=== PATIENT | male | born 1940 | race Caucasian/White ===

== ENCOUNTER 2019-06-17 09:45 | Emergency (ER) | payer OTHER, BC ==
[2019-06-17 10:06] VITALS: TEMP 97.4; BMI 28.7
--- NOTE | 2019-06-17 10:47 | PDOC ---
History of Present Illness - General Chief Complaint: Lightheaded Stated Complaint: FALL Time Seen by Provider: 06/17/19 10:03 History Source: Patient Exam Limitations: No Limitations - History of Present Illness Initial Comments: 06/17/19 10:57 Presents to ED with complaints of pain swelling and bruising to his left hand. Patient states yesterday he was walking and tripped on the sidewalk causing him to land on his knee and left hand. Patient states initially had no discomfort in this morning when he awoke he had noticed swelling and bruising to the left hand and so decided to come to the ER. Patient states walks approximately 2 to 3 miles a day and denies any LOC or other injuries. Last tdap 3 yrs ago. Occurred: reports: yesterday Severity: reports: mild Pain Location: reports: upper extremity Method of Injury: Yes: fall Modifying Factors: improves with: None Loss of Consciousness: no loss of consciousness Associated Symptoms (Fall): denies symptoms Past History - Travel Traveled outside of the country in the last 30 days: No Close contact w/someone who was outside of country & ill: No - Past Medical History Allergies/Adverse Reactions: Allergies Allergy/AdvReac Type Severity Reaction Status Date / Time meperidine HCl [From Demerol] AdvReac Verified 06/17/19 09:53 Home Medications: Ambulatory Orders Atenolol [Tenormin -] 25 mg PO DAILY 11/26/15 Hydrochlorothiazide [Hctz -] 25 mg PO DAILY 11/26/15 Hydrocodone Bit/Homatropine [Hycodan Syrup] 5 ml PO QID PRN #60 ml 11/26/15 HTN: Yes - Surgical History Cholecystectomy: Yes - Psycho Social/Smoking Cessation Hx Smoking History: Former smoker Have you smoked in the past 12 months: No If you are a former smoker, when did you quit?: 1979 Information on smoking cessation initiated: No Hx Alcohol Use: No Drug/Substance Use Hx: No Patient Lives Alone: No Lives with/in: brother Review of Systems - Review of Systems Able to Perform ROS?: Yes Constitutional: No: Symptoms Reported HEENTM: No: Symptoms Reported Respiratory: No: Symptoms reported Cardiac (ROS): No: Symptoms Reported ABD/GI: No: Symptoms Reported : No: Symptoms Reported Musculoskeletal: Yes: Joint Pain (left hand) Integumentary: Yes: Bruising (left hand), Erythema Neurological: No: Symptoms reported Endocrine: No: Symptoms Reported Hematologic/Lymphatic: No: Symptoms Reported *Physical Exam - Vital Signs Last Vital Signs Temp Pulse Resp BP Pulse Ox 97.4 F L 84 18 129/66 94 L 06/17/19 09:45 06/17/19 09:45 06/17/19 09:45 06/17/19 09:45 06/17/19 09:45 - Physical Exam General Appearance: Yes: Nourished, Appropriately Dressed. No: Apparent Distress HEENT: positive: EOMI, HIEU. negative: Pale Conjunctivae Neck: positive: Supple. negative: Decreased range of motion, Tender midline Respiratory/Chest: positive: Lungs Clear, Normal Breath Sounds. negative: Chest Tender, Respiratory Distress, Accessory Muscle Use Cardiovascular: positive: Regular Rhythm, Regular Rate. negative: Murmur Gastrointestinal/Abdominal: positive: Soft. negative: Tenderness Extremity: positive: Normal Range of Motion. negative: Normal Inspection ( noted diffuse ) Integumentary: positive: Swelling (over left 1 st digit and 4th and 5th mcp joint), Ecchymosis, Other (abrasion to left patella) Neurologic: positive: Motor Strength 5/5 (5 + hand grasp) Heart Score/ECG Review - ECG Intrepretation Rhythm: Regular Rhythm (rate 76, bifascicular block. unchanged from november 2015) ED Treatment Course - RADIOLOGY Radiology Studies Ordered: Category Date Time Status HAND- LEFT [RAD] Stat Radiology 06/17/19 10:13 Ordered Medical Decision Making - Medical Decision Making 06/17/19 10:59 CC: left hand swelling and bruising along with left knee abrasion. No loc and utd tdap. Pt states felt slightly dizzy upon ED arrival but resolved within minutes and states he feels slightly nervous about coming to the ED Exam: noted superficial abrasion to left knee, noted diffuse ecchymosis to left hand mainly to 1st digit Plan: xray of hand, ekg done in triage 06/17/19 12:19 Patient remains asymptomatic with no complaints of lightheadedness, dizziness, chest pain, shortness of breath. Patient requesting to eat and go home. X-ray read as negative. Patient recommended to take Tylenol for discomfort ice it and elevate. Discharge - Discharge Information Problems reviewed: Yes Clinical Impression/Diagnosis: Contusion, hand Condition: Good Disposition: HOME - Follow up/Referral Referrals: Tamara Slaughter MD [Primary Care Provider] - - Patient Discharge Instructions Patient Printed Discharge Instructions: DI for Hand Injury Additional Instructions: At this time I recommend taking Tylenol every 6-8 hours for discomfort. Apply ice to the affected areas much as he can tolerate, and elevate to decrease swelling - Post Discharge Activity
[2019-06-17 13:14] VITALS: BP 144/70; PULSE 66
--- NOTE | 2019-06-18 11:42 | EKG ---
Test Reason : Blood Pressure : / mmHG Vent. Rate : 076 BPM Atrial Rate : 076 BPM P-R Int : 190 ms QRS Dur : 154 ms QT Int : 412 ms P-R-T Axes : 076 -61 065 degrees QTc Int : 463 ms NORMAL SINUS RHYTHM RIGHT BUNDLE BRANCH BLOCK LEFT ANTERIOR FASCICULAR BLOCK BIFASCICULAR BLOCK LEFT VENTRICULAR HYPERTROPHY WITH REPOLARIZATION ABNORMALITY ABNORMAL ECG WHEN COMPARED WITH ECG OF 26-NOV-2015 12:56, NO SIGNIFICANT CHANGE WAS FOUND Confirmed by SARATH KAUR MD ([id number]) on 06/18/2019 11:41:58 AM Referred By: Confirmed By:SARATH KAUR MD
--- NOTE | 2019-06-19 16:16 | EKG ---
Test Reason : Blood Pressure : / mmHG Vent. 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
== END 2019-06-17 12:55 | disposition home or self-care (01) ==
LOC: JERFT 09:45
DX: S60.222A Contusion of left hand, initial encounter (principal); S80.212A Abrasion, left knee, initial encounter; W01.0XXA Fall on same level from slipping, tripping and stumbling without subsequent striking against object, initial encounter; Y93.01 Activity, walking, marching and hiking; Y92.480 Sidewalk as the place of occurrence of the external cause; Y99.8 Other external cause status; I10 Essential (primary) hypertension; Z87.891 Personal history of nicotine dependence
CPT/HCPCS: 73130-TC-LT-FY; 93005; 93010; 99283-25

== ENCOUNTER 2019-11-22 13:51 | Emergency (ER) | payer OTHER, BC ==
[2019-11-22 14:16] VITALS: BP 142/78; PULSE 70; TEMP 97.9; BMI 29.0
[2019-11-22] MEDS ORDERED: ACETAMINOPHEN 325 MG TABLET (FP) PO ONE (15:25)
[2019-11-22] MEDS ORDERED: ACETAMINOPHEN 500 MG TABLET (FP) ONE (15:35)
--- NOTE | 2019-11-22 16:49 | PDOC ---
History of Present Illness - General Chief Complaint: Injury Stated Complaint: L/KNEE PAIN Time Seen by Provider: 11/22/19 15:13 History Source: Patient Exam Limitations: No Limitations Past History - Travel Traveled outside of the country in the last 30 days: No Close contact w/someone who was outside of country & ill: No - Past Medical History Allergies/Adverse Reactions: Allergies Allergy/AdvReac Type Severity Reaction Status Date / Time meperidine HCl [From Demerol] AdvReac Verified 11/22/19 14:12 Home Medications: Ambulatory Orders Atenolol [Tenormin -] 25 mg PO DAILY 11/26/15 Hydrochlorothiazide [Hctz -] 25 mg PO DAILY 11/26/15 Atorvastatin Calcium [Lipitor] 10 mg PO HS 11/22/19 COPD: No HTN: Yes - Surgical History Cholecystectomy: Yes - Immunization History Immunization Up to Date: Yes - Psycho Social/Smoking Cessation Hx Smoking History: Never smoked Have you smoked in the past 12 months: No If you are a former smoker, when did you quit?: 1979 Hx Alcohol Use: No Drug/Substance Use Hx: No Review of Systems - Review of Systems Able to Perform ROS?: Yes Comments:: 11/22/19 16:51 CONSTITUTIONAL: Absent: fever, chills, diaphoresis, generalized weakness, malaise, loss of appetite MUSCULOSKELETAL: Present: Left knee pain absent: myalgia, arthralgia, joint swelling SKIN: Absent: rash, itching, pallor NEUROLOGIC: Absent: headache, focal weakness or paresthesias, dizziness, unsteady gait, seizure, mental status changes, bladder or bowel incontinence PSYCHIATRIC: Absent: anxiety, depression, suicidal or homicidal ideation, hallucinations. Is the patient limited [place] proficient: No *Physical Exam - Vital Signs Last Vital Signs Temp Pulse Resp BP Pulse Ox 97.9 F 70 18 142/78 98 11/22/19 14:14 11/22/19 14:14 11/22/19 14:14 11/22/19 14:14 11/22/19 14:14 - Physical Exam 11/22/19 16:53 GENERAL: The patient is awake, alert, and fully oriented, in no acute distress. HEAD: Normal with no signs of trauma. EYES: Pupils equal, round and reactive to light, extraocular movements intact, sclera anicteric, conjunctiva clear. EXTREMITIES: There is palpation of the left posterior knee. Normal range of motion of left knee, negative special testing. Negative bilateral anterior draw, posterior draw, valgus and varus stressing. Negative Presley sign. Normal range of motion, no edema. No calf pain bilaterally. NEUROLOGICAL: Normal speech, normal gait. PSYCH: Normal mood, normal affect. SKIN: Warm, Dry, normal turgor, no rashes or lesions noted. General Appearance: Yes: Nourished ED Treatment Course - RADIOLOGY Radiology Studies Ordered: Category Date Time Status KNEE 3 POS-LEFT [RAD] Stat Radiology 11/22/19 15:25 Completed - Medications Given in the ED: ED Medications Discontinued Medications Generic Name Dose Route Start Last Admin Trade Name Freq PRN Reason Stop Dose Admin Acetaminophen 1,000 mg 11/22/19 15:25 11/22/19 15:37 Tylenol - PO 11/22/19 15:26 1,000 mg ONCE ONE Administration Medical Decision Making - Medical Decision Making 11/22/19 16:55 Patient is a 79-year-old male who presents to the ER with left knee pain. He states he was walking home from the grocery store when he felt his knee buckle. He states that it hurts to walk. He denies falling. Denies numbness and tingling weakness effect extremity. A/P: Left knee pain On exam special testing is unremarkable. Left knee has full range of motion. There is some tenderness palpation of the posterior knee. No calf pain. X-ray shows arthritis in the knee. Potential knee sprain versus hamstring strain versus arthritis. We will have patient follow-up with orthopedics. Discharge home I discussed the physical exam findings, ancillary test results and final diagnoses with the patient. I answered all of the patient's questions. The patient was satisfied with the care received and felt comfortable with the discharge plan and treatment plan. The Patient agrees to follow up with the primary care physician/specialist within 24-72 hours. Return precautions were given. Discharge - Discharge Information Problems reviewed: Yes Clinical Impression/Diagnosis: Knee pain, left Qualifiers: Chronicity: acute Qualified Code(s): M25.562 - Pain in left knee Condition: Stable Disposition: HOME - Admission No - Follow up/Referral Referrals: Tamara Slaughter MD [Primary Care Provider] - - Patient Discharge Instructions Patient Printed Discharge Instructions: DI for Knee Pain Additional Instructions: You were evaluated for your knee pain today. Your x-ray did not show any broken bones. You do have some arthritis in the knee. Please alternate between taking Tylenol 650 mg and Motrin 600 mg as needed for pain. You may wear the [place] wrap for comfort. Follow-up with orthopedics this week for further management and treatment options. A referral has been provided to you. Return to the ER for any new or worsening symptoms. - Post Discharge Activity
== END 2019-11-22 17:31 | disposition home or self-care (01) ==
LOC: JERFT 13:51
DX: M25.562 Pain in left knee (principal); Z88.8 Allergy status to other drugs, medicaments and biological substances
CPT/HCPCS: 73562-TC-LT-FY; 99283-25

== ENCOUNTER 2022-01-19 17:01 | Observation (INO) | payer OTHER, BC ==
[2022-01-19 18:33] LABS: EOS % 5.3 % (0-4.5); HEMATOCRIT 41.3 % (35.4-49); HEMOGLOBIN 13.9 GM/dL (11.7-16.9); LYMPH % 22.6 % (8-40); MCH 30.3 pg (25.7-33.7); MCHC 33.7 g/dl (32.0-35.9); MEAN CELL VOLUME 90.1 fl (80-96); MONO % 13.7 % (3.8-10.2); NEUT % 57.4 % (42.8-82.8); PLATELET COUNT 150 10^3/uL (134-434); RBC 4.59 M/mm3 (4.00-5.60); RDW 14.5 % (11.9-15.9); WHITE BLOOD COUNT 5.2 K/mm3 (4.0-10.0)
[2022-01-19] MEDS ORDERED: ALBUTEROL SO4 2.5/IPRATROPIUM 0.5 INH SOL 3 ML VIAL.NEB. NEB ONE (18:36)
[2022-01-19] MEDS: ALBUTEROL SO4 2.5/IPRATROPIUM 0.5 INH SOL 3 ML VIAL.NEB. NEB SCH ×2 (18:39→18:57)
[2022-01-19 18:46] LABS: PH,URINE 7.5 (5.0-8.0); URINE APPEARANCE CLEAR; URINE BILIRUBIN NEGATIVE (NEGATIVE); URINE COLOR YELLOW; URINE GLUCOSE (UA) NEGATIVE (NEGATIVE); URINE KETONE NEGATIVE (NEGATIVE); URINE LEUK ESTERASE NEGATIVE (NEGATIVE); URINE NITRITE NEGATIVE (NEGATIVE); URINE PROTEIN NEGATIVE (NEGATIVE); URINE UROBILINOGEN 0.2 mg/dL (0.2-1.0)
[2022-01-19 18:56] LABS: ALBUMIN 3.5 g/dl (3.4-5.0); BLOOD UREA NITROGEN 13.9 mg/dL (7-18); CALCIUM 8.8 mg/dL (8.5-10.1); MAGNESIUM 2.3 mg/dL (1.8-2.4)
[2022-01-19 18:59] LABS: PHOSPHOROUS 2.8 mg/dL (2.5-4.9)
[2022-01-19 19:01] LABS: BILIRUBIN,TOTAL 0.4 mg/dL (0.2-1); TOT PROT 6.6 g/dl (6.4-8.2)
[2022-01-19 19:04] LABS: N-TERMINAL BNP 150.3 pg/ml (5-450)
[2022-01-19 19:10] LABS: ACTIVATED PTT 28.3 SECONDS (25.2-36.5)
[2022-01-19 19:26] LABS: INR 1.07 (0.83-1.09); PROTHROMBIN TIME (PATIENT) 12.3 SEC (9.7-13.0)
[2022-01-19] MEDS ORDERED: ALBUTEROL SO4 HFA INHALER IH PRN (21:28)
[2022-01-19] MEDS ORDERED: MONTELUKAST NA 10 MG TABLET ONE (21:45)
[2022-01-19] MEDS ORDERED: ATORVASTATIN CA 20 MG TABLET (FP) ONE (21:45)
[2022-01-19] MEDS ORDERED: MONTELUKAST NA 5 MG TAB.CHEW PO SCH (22:00)
[2022-01-19] MEDS ORDERED: ROSUVASTATIN CA 20 MG TABLET PO SCH (22:00)
[2022-01-19] MEDS ORDERED: MONTELUKAST NA 10 MG TABLET PO SCH (22:00)
[2022-01-19 22:56] VITALS: BMI 26.9
[2022-01-20 07:31] LABS: BASO % 0.6 % (0-2.0); EOS % 4.4 % (0-4.5); HEMATOCRIT 39.1 % (35.4-49); HEMOGLOBIN 13.4 GM/dL (11.7-16.9); LYMPH % 17.6 % (8-40); MCHC 34.2 g/dl (32.0-35.9); MEAN CELL VOLUME 90.6 fl (80-96); MEAN PLT VOLUME 8.2 fl (7.5-11.1); NEUT % 66.4 % (42.8-82.8); PLATELET COUNT 144 10^3/uL (134-434); RBC 4.31 M/mm3 (4.00-5.60); RDW 14.5 % (11.9-15.9); WHITE BLOOD COUNT 5.2 K/mm3 (4.0-10.0)
[2022-01-20 07:43] LABS: CALCIUM 8.6 mg/dL (8.5-10.1)
[2022-01-20 07:44] LABS: ALBUMIN 3.4 g/dl (3.4-5.0); BLOOD UREA NITROGEN 11.5 mg/dL (7-18)
[2022-01-20 07:46] LABS: CREATININE 0.8 mg/dL (0.55-1.3)
[2022-01-20 07:48] LABS: BILIRUBIN,TOTAL 0.6 mg/dL (0.2-1); TOT PROT 6.4 g/dl (6.4-8.2)
[2022-01-20] MEDS: TAMSULOSIN HCL 0.4 MG CAP PO SCH ×2 (09:51→09:54)
[2022-01-20 09:55] VITALS: TEMP 98
[2022-01-20] MEDS ORDERED: ATENOLOL 25 MG TABLET (FP) PO SCH (10:00)
[2022-01-20] MEDS ORDERED: MULTIVITAMINS (DAILY MVI) TABLET (FP) PO SCH (10:00)
[2022-01-20] MEDS ORDERED: ASPIRIN COATED 81 MG TABLET.EC PO SCH (10:00)
[2022-01-20] MEDS ORDERED: CHOLECALCIFEROL (VIT D3) 1,000 UNIT (25 MCG) TABLET PO SCH (10:00)
[2022-01-20] MEDS ORDERED: HYDROCHLOROTHIAZIDE 25 MG TABLET (FP) PO SCH (10:00)
[2022-01-20] MEDS ORDERED: ISOSORBIDE MONONITRATE 30 MG TAB.SR.24H (FP) PO SCH (10:00)
[2022-01-20] MEDS ORDERED: TAMSULOSIN HCL 0.4 MG CAP PO SCH (11:06)
[2022-01-20 14:48] VITALS: BP 113/58; PULSE 51
== END 2022-01-20 16:49 | disposition short-term general hospital (02) ==
LOC: JER 17:01 → JERBED 20:01 → J4W 21:57
PROVIDERS: ADMIT Internal Medicine; ATTEND Family Medicine
PROC: 3E0F7SF Introduction of Other Gas into Respiratory Tract, Via Natural or Artificial Opening (ICD-10-PCS; principal; 2022-01-19)
DX: R07.89 Other chest pain (principal); R00.1 Bradycardia, unspecified; I10 Essential (primary) hypertension; I25.10 Atherosclerotic heart disease of native coronary artery without angina pectoris; J44.9 Chronic obstructive pulmonary disease, unspecified; E78.5 Hyperlipidemia, unspecified; R06.00 Dyspnea, unspecified; Z87.891 Personal history of nicotine dependence; Z79.82 Long term (current) use of aspirin; Z88.8 Allergy status to other drugs, medicaments and biological substances; Z20.822 Contact with and (suspected) exposure to COVID-19
CPT/HCPCS: 36415; 71045-TC-FY; 80053; 81003; 83735; 83880; 84100; 84484; 85025; 85610; 85730; 87086; 93005; 93010; 94640; 99285-25; C9803-CS; G0378; U0003; U0005